=== PATIENT | male | born 1980 | race Caucasian/White ===

== ENCOUNTER 2023-03-01 12:45 | Emergency (ER) | payer OTHER, SELFPAY ==
[2023-03-01 12:49] VITALS: BP 130/85; PULSE 98; RESP 20; TEMP 36.6; O2SAT 97; BMI 36.9
--- NOTE | 2023-03-01 13:44 | CT_ITS ---
The [address] [address] Patient Name: LANDRY BRADLEY MRN: [id number] date: 1980 Sex: M Assigned Patient Location: ER Current Patient Location: ER Accession/Order Number: [id number] Exam Date: 03/01/2023 14:25 Report Date: 03/01/2023 14:58 At the request of: WARREN HUANG Procedure: CT lumbar spine wo con PROCEDURE: CT lumbar spine wo con COMPARISON: None. HISTORY: lumbar radiculopathy , left leg pain and numbness TECHNIQUE: Axial, Coronal, and Sagittal CT images obtained without IV contrast. Dose reduction techniques were achieved by using automated exposure control and/or adjustment of mA and/or kV according to patient size and/or use of iterative reconstruction technique. FINDINGS: PARASPINAL AREA: Normal with no visible mass. DISCS: Mild to moderate narrowing with disc/osteophyte complex L5-S1 coupled facet osteoarthropathy. There is mild to moderate narrowing of the right L5-S1 neural foramen BONES: Normal alignment with no acute fracture or spondylolisthesis. Minimal degenerative spondylosis. Focal area of sclerosis in the L2 vertebral body, indeterminate, possibly an enostosis. OTHER: Vascular calcifications CT/CT lumbar spine wo con IMPRESSION: Mild degenerative changes with mild to moderate narrowing of the right L5-S1 neural foramen Electronically authenticated by: MARIFER MOREAU Date: 03/01/2023 14:58
--- NOTE | 2023-03-01 13:46 | ED_ITS ---
Documented by User: GRIS Finley 03/01/23 15:26 HPI - General Adult General Chief complaint: Extremity Problem, Nontraumatic Stated complaint: LT LEG PAIN Time Seen by Provider: 03/01/23 13:14 Source: patient Mode of arrival: walk-in Limitations: no limitations History of Present Illness HPI narrative: patient is a 42-year-old male who presents to the emergency department for e valuation of tingling in the toes bilaterally as well as some tingling and pain on the left side of the leg. patient presents from [facility] to rule out AAA per the provider at the facility because the patient was complaining of abdominal cramping before bowel movement earlier today. Patient has no abdominal pain at this time, he states he has abdominal cramping before every bowel movement and he does not understand why the facility wanted him to come to be evaluated for his abdomen. He has had no fevers, vomiting, urinary symptoms. He denies any significant low back pain. He had no injuries to the lower extremities. He has not had any swelling, redness of the extremities. He states for the last several days he has noted numbness and tingling along the left anterior thigh into the left knee and he has noted tingling of the bilateral toes. He was recently started on gabapentin for this. Related Data Previous Rx's Medication Instructions Recorded ketorolac 10 mg tablet 10 mg PO TID PRN pain #10 tabs 03/01/23 methylprednisolone 4 mg tablets in See Rx Instructions .Route 03/01/23 a dose pack (Medrol (Joseph)) .COMPLEX #21 ea Allergies Allergy/AdvReac Type Severity Reaction Status Date / Time Penicillins Allergy Severe Hives Verified 03/01/23 12:55 Review of Systems ROS Constitutional Denies: fever or chills Ears, nose, mouth, and throat Denies: throat pain Cardiovascular Denies: chest pain Respiratory Denies: shortness of breath Gastrointestinal Reports: abdominal pain; Denies: nausea or vomiting Genitourinary Denies: painful urination Musculoskeletal Denies: back pain Integumentary/Breast Denies: rash Neurological Denies: headache Allergic/Immunologic Denies: hives PFSH PFSH Social History Smoking status: Heavy tobacco smoker Exam Narrative Exam Narrative: Gen.: Awake, alert, in no distress Head: Normocephalic, atraumatic ENT: Moist mucous membranes Respiratory: No respiratory distress Gastrointestinal: Abdomen is soft, nondistended and nontender to palpation; no pulsatile mass or distention Back: no bony tenderness of the C-spine, T-spine or L-spine, posterior hips are nontender Extremities: Moves extremities equally, normal dorsiflexion and plantarflexion of the lower extremities with no decrease in sensation to the medial thighs. Normal hip flexion bilaterally Psych: Normal mood and affect Neuro: No focal neuro deficit Skin: Warm, dry, intact Constitutional Vital Signs, click to edit/add: Last Vital Signs Temp 98 F 03/01/23 12:49 Pulse 89 03/01/23 15:55 Resp 20 03/01/23 15:55 BP 122/80 03/01/23 15:55 Pulse Ox 98 03/01/23 15:55 O2 Del Method Room Air 03/01/23 15:55 Course Vital Signs Vital signs: Vital Signs Temperature 98 F 03/01/23 12:49 Pulse Rate 98 H 03/01/23 12:49 Respiratory Rate 03/01/23 12:49 Blood Pressure 130/85 03/01/23 12:49 Pulse Oximetry 97 03/01/23 12:49 Oxygen Delivery Method Room Air 03/01/23 12:49 Temperature 98 F 03/01/23 12:49 Pulse Rate 89 03/01/23 15:55 Respiratory Rate 20 03/01/23 15:55 Blood Pressure 122/80 03/01/23 15:55 Pulse Oximetry 98 03/01/23 15:55 Oxygen Delivery Method Room Air 03/01/23 15:55 Medical Decision Making MDM Narrative Medical decision making narrative: patient with no complaints of abdominal pain in the Emergency Room. Vital signs are stable. CT of the lumbar spine with mild narrowing of L5/S1. Patient has no focal neuro deficits in the Emergency Room, history and exam are consistent with lumbar radiculopathy. He is on gabapentin as well. His lab studies are unremarkable with no evidence of electrolyte abnormality. He was reevaluated by attending physician prior to discharge and at this time we are not concerned for aortic dissection as he has normal pulses to the lower extremities, no abdominal tenderness or hypotension. He will be started on a Medrol Dosepak and NSAIDs, he is prescribed Robaxin at the rehab facility. He is encouraged to continue the gabapentin. He was made aware that his symptoms can always potentially be a side effect of his multiple medications that he was recently started on but are consistent with lumbar radiculopathy at this time. Return to the Emergency Room if symptoms change or worsen. Medical Records Medical records reviewed: Yes I reviewed the patient's medical records Lab Data Lab results reviewed: Yes I reviewed the patient's lab results Labs: Lab Results 03/01/23 Range/Units 13:58 WBC 8.8 (4.0-11.0) 10^3/uL RBC 5.07 (4.70-6.10) 10^6/uL Hgb 15.0 (14.0-18.0) g/dL Hct 43.5 (42.0-54.0) % MCV 85.8 (80.0-94.0) fL MCH 29.6 (25.9-34.0) pg MCHC 34.5 (29.9-35.2) g/dL RDW 13.6 (11.0-15.0) % Plt Count 192 (150-450) 10^3/uL MPV 10.1 (9.5-13.5) fL Neut % (Auto) 50.7 (43.0-75.0) % Lymph % (Auto) 32.5 (20.5-60.0) % [place] % (Auto) 9.6 (1.7-12.0) % Eos % (Auto) 6.3 (0.9-7.0) % Baso % (Auto) 0.7 (0.2-2.0) % Neut # (Auto) 4.5 (1.4-6.5) 10^3/uL Lymph # (Auto) 2.9 (1.2-3.8) 10^3/uL [place] # (Auto) 0.8 (0.3-0.8) 10^3/uL Eos # (Auto) 0.6 (0.0-0.7) 10^3/uL Baso # (Auto) 0.1 (0.0-0.1) 10^3/uL Abs Immat Gran (auto) 0.02 (0.00-0.03) 10^3/uL Imm/Tot Granulo (auto) 0.2 (0.0-0.5) % Sodium 137 (136-145) mmol/L Potassium 4.1 (3.5-5.1) mmol/L Chloride 101 (98-107) mmol/L Carbon Dioxide 30.4 (21.0-32.0) mmol/L Anion Gap 9.7 BUN 17.0 (7.0-18.0) mg/dL Creatinine 1.26 (0.70-1.30) mg/dL Est GFR ( Amer) >60 (>=60) Est GFR (Non-Af Amer) >60 (>=60) BUN/Creatinine Ratio 13.5 Glucose 154 H (74-106) mg/dL Calcium 8.4 L (8.5-10.1) mg/dL Magnesium 1.8 (1.8-2.4) mg/dL Total Bilirubin 0.3 (0.2-1.0) mg/dL AST 18 (15-37) U/L ALT 33 (16-63) U/L Alkaline Phosphatase 66 (46-116) U/L Total Protein 7.2 (6.4-8.2) g/dL Albumin 3.7 (3.4-5.0) g/dL Globulin 3.5 g/dL Albumin/Globulin Ratio 1.[address] Lumbar spine: Attestation: I have reviewed the pertinent imaging results. Radiologist's impression: Procedure: CT lumbar spine wo con PROCEDURE: CT lumbar spine wo con COMPARISON: None. HISTORY: lumbar radiculopathy , left leg pain and numbness TECHNIQUE: Axial, Coronal, and Sagittal CT images obtained without IV contrast. Dose reduction techniques were achieved by using automated exposure control and/or adjustment of mA and/or kV according to patient size and/or use of iterative reconstruction technique. FINDINGS: PARASPINAL AREA: Normal with no visible mass. DISCS: Mild to moderate narrowing with disc/osteophyte complex L5-S1 coupled facet osteoarthropathy. There is mild to moderate narrowing of the right L5-S1 neural foramen BONES: Normal alignment with no acute fracture or spondylolisthesis. Minimal degenerative spondylosis. Focal area of sclerosis in the L2 vertebral body, indeterminate, possibly an enostosis. OTHER: Vascular calcifications IMPRESSION: Mild degenerative changes with mild to moderate narrowing of the right L5-S1 neural foramen Electronically authenticated by: MARIFER MOREAU Date: 03/01/2023 14:58 Discharge Plan Discharge Chief Complaint: Extremity Problem, Nontraumatic Clinical Impression: Acute lumbar radiculopathy Patient Disposition: Home, Self-Care Time of Disposition Decision: 15:24 Condition: Good Prescriptions / Home Meds: New ketorolac 10 mg tablet 10 mg PO TID PRN (Reason: pain) Qty: 10 0RF methylprednisolone [Medrol (Joseph)] 4 mg tablets,dose pack See Rx Instructions .ROUTE .COMPLEX Qty: 21 0RF Rx Instructions: Taper as directed Instructions: Lumbar Radiculopathy (ED) Stand Alone Forms: Portal Instructions Referrals: Physician,Non-Staff, MD [Primary Care Provider] - 1 week Discharge Date/Time: 03/01/23 16:01 Documented by User: Ela Knight MD 03/01/23 17:12 HPI - General Adult General Chief complaint: Extremity Problem, Nontraumatic Stated complaint: LT LEG PAIN Time Seen by Provider: 03/01/23 13:14 Related Data Previous Rx's Medication Instructions Recorded ketorolac 10 mg tablet 10 mg PO TID PRN pain #10 tabs 03/01/23 methylprednisolone 4 mg tablets in See Rx Instructions .Route 03/01/23 a dose pack (Medrol (Joseph)) .COMPLEX #21 ea Allergies Allergy/AdvReac Type Severity Reaction Status Date / Time Penicillins Allergy Severe Hives Verified 03/01/23 12:55 PFSH [facility] Social History Smoking status: Heavy tobacco smoker Exam Constitutional Vital Signs, click to edit/add: Last Vital Signs Temp 98 F 03/01/23 12:49 Pulse 89 03/01/23 15:55 Resp 20 03/01/23 15:55 BP 122/80 03/01/23 15:55 Pulse Ox 98 03/01/23 15:55 O2 Del Method Room Air 03/01/23 15:55 Course Vital Signs Vital signs: Vital Signs Temperature 98 F 03/01/23 12:49 Pulse Rate 98 H 03/01/23 12:49 Respiratory Rate 20 03/01/23 12:49 Blood Pressure 130/85 03/01/23 12:49 Pulse Oximetry 97 03/01/23 12:49 Oxygen Delivery Method Room Air 03/01/23 12:49 Temperature 98 F 03/01/23 12:49 Pulse Rate 89 03/01/23 15:55 Respiratory Rate 20 03/01/23 15:55 Blood Pressure 122/80 03/01/23 15:55 Pulse Oximetry 98 03/01/23 15:55 Oxygen Delivery Method Room Air 03/01/23 15:55 Medical Decision Making MDM Narrative Medical decision making narrative: patient with no complaints of abdominal pain in the Emergency Room. Vital signs are stable. CT of the lumbar spine with mild narrowing of L5/S1. Patient has no focal neuro deficits in the Emergency Room, history and exam are consistent with lumbar radiculopathy. He is on gabapentin as well. His lab studies are unremarkable with no evidence of electrolyte abnormality. He was reevaluated by attending physician prior to discharge and at this time we are not concerned for aortic dissection as he has normal pulses to the lower extremities, no abdominal tenderness or hypotension. He will be started on a Medrol Dosepak and NSAIDs, he is prescribed Robaxin at the rehab facility. He is encouraged to continue the gabapentin. He was made aware that his symptoms can always potentially be a side effect of his multiple medications that he was recently started on but are consistent with lumbar radiculopathy at this time. Return to the Emergency Room if symptoms change or worsen. Attending physician attestation I have seen and evaluated this patient. I have reviewed the mid-level provider?s documentation medical decision making and treatment plan. I agree with the mid- level provider?s assessment, and plan. Lab Data Labs: Lab Results 03/01/23 Range/Units 13:58 WBC 8.8 (4.0-11.0) 10^3/uL RBC 5.07 (4.70-6.10) 10^6/uL Hgb 15.0 (14.0-18.0) g/dL Hct 43.5 (42.0-54.0) % MCV 85.8 (80.0-94.0) fL MCH 29.6 (25.9-34.0) pg MCHC 34.5 (29.9-35.2) g/dL RDW 13.6 (11.0-15.0) % Plt Count 192 (150-450) 10^3/uL MPV 10.1 (9.5-13.5) fL Neut % (Auto) 50.7 (43.0-75.0) % Lymph % (Auto) 32.5 (20.5-60.0) % [place] % (Auto) 9.6 (1.7-12.0) % Eos % (Auto) 6.3 (0.9-7.0) % Baso % (Auto) 0.7 (0.2-2.0) % Neut # (Auto) 4.5 (1.4-6.5) 10^3/uL Lymph # (Auto) 2.9 (1.2-3.8) 10^3/uL [place] # (Auto) 0.8 (0.3-0.8) 10^3/uL Eos # (Auto) 0.6 (0.0-0.7) 10^3/uL Baso # (Auto) 0.1 (0.0-0.1) 10^3/uL Abs Immat Gran (auto) 0.02 (0.00-0.03) 10^3/uL Imm/Tot Granulo (auto) 0.2 (0.0-0.5) % Sodium 137 (136-145) mmol/L Potassium 4.1 (3.5-5.1) mmol/L Chloride 101 (98-107) mmol/L Carbon Dioxide 30.4 (21.0-32.0) mmol/L Anion Gap 9.7 BUN 17.0 (7.0-18.0) mg/dL Creatinine 1.26 (0.70-1.30) mg/dL Est GFR ( Amer) >60 (>=60) Est GFR (Non-Af Amer) >60 (>=60) BUN/Creatinine Ratio 13.5 Glucose 154 H (74-106) mg/dL Calcium 8.4 L (8.5-10.1) mg/dL Magnesium 1.8 (1.8-2.4) mg/dL Total Bilirubin 0.3 (0.2-1.0) mg/dL AST 18 (15-37) U/L ALT 33 (16-63) U/L Alkaline Phosphatase 66 (46-116) U/L Total Protein 7.2 (6.4-8.2) g/dL Albumin 3.7 (3.4-5.0) g/dL Globulin 3.5 g/dL Albumin/Globulin Ratio 1.1 Discharge Plan Discharge Chief Complaint: Extremity Problem, Nontraumatic Clinical Impression: Acute lumbar radiculopathy Patient Disposition: Home, Self-Care Time of Disposition Decision: 15:24 Condition: Good Prescriptions / Home Meds: New ketorolac 10 mg tablet 10 mg PO TID PRN (Reason: pain) Qty: 10 0RF methylprednisolone [Medrol (Joseph)] 4 mg tablets,dose pack See Rx Instructions .ROUTE .COMPLEX Qty: 21 0RF Rx Instructions: Taper as directed Instructions: Lumbar Radiculopathy (ED) Stand Alone Forms: Portal Instructions Referrals: Physician,Non-Staff, MD [Primary Care Provider] - 1 week Discharge Date/Time: 03/01/23 16:01
[2023-03-01 14:13] LABS: Basophils Absolute Auto 0.1 10^3/uL (0.0-0.1); Basophils Percent Auto 0.7 % (0.2-2.0); Eosinophils Absolute Auto 0.6 10^3/uL (0.0-0.7); Eosinophils Percent Auto 6.3 % (0.9-7.0); Hematocrit 43.5 % (42.0-54.0); Immature Granulocytes Abs Auto 0.02 10^3/uL (0.00-0.03); Immature Granulocytes Pct Auto 0.2 % (0.0-0.5); Lymphocytes Absolute Auto 2.9 10^3/uL (1.2-3.8); Lymphocytes Percent Auto 32.5 % (20.5-60.0); Mean Corpuscular HGB Conc 34.5 g/dL (29.9-35.2); Mean Corpuscular Hemoglobin 29.6 pg (25.9-34.0); Mean Corpuscular Volume 85.8 fL (80.0-94.0); Mean Platelet Volume 10.1 fL (9.5-13.5); Monocytes Absolute Auto 0.8 10^3/uL (0.3-0.8); Monocytes Percent Auto 9.6 % (1.7-12.0); Neutrophils Absolute Auto 4.5 10^3/uL (1.4-6.5); Neutrophils Percent Auto 50.7 % (43.0-75.0); Platelet Count 192 10^3/uL (150-450); Red Blood Count 5.07 10^6/uL (4.70-6.10); Red Cell Distribution Width 13.6 % (11.0-15.0); White Blood Count 8.8 10^3/uL (4.0-11.0)
[2023-03-01 14:26] LABS: Magnesium 1.8 mg/dL (1.8-2.4)
[2023-03-01 14:27] LABS: Alanine Aminotransferase 33 U/L (16-63); Albumin Globulin Ratio 1.1; Albumin Level 3.7 g/dL (3.4-5.0); Alkaline Phosphatase 66 U/L (46-116); Anion Gap 9.7; Aspartate Amino Transferase 18 U/L (15-37); BUN Creatinine Ratio 13.5; Bilirubin Total 0.3 mg/dL (0.2-1.0); Calcium 8.4 mg/dL (8.5-10.1); Carbon Dioxide 30.4 mmol/L (21.0-32.0); Chloride 101 mmol/L (98-107); Estimated GFR (African America >60 (>=60); Estimated GFR (Non-African Ame >60 (>=60); Globulin 3.5 g/dL; Glucose 154 mg/dL (74-106); Potassium 4.1 mmol/L (3.5-5.1); Sodium 137 mmol/L (136-145); Total Protein 7.2 g/dL (6.4-8.2)
[2023-03-01 15:55] VITALS: BP 122/80; PULSE 89; RESP 20; O2SAT 98
== END 2023-03-01 16:01 | disposition home or self-care (01) ==
PROVIDERS: Physician Assistant; Emergency Provider Emergency Medicine
DX: M54.16 Radiculopathy, lumbar region (principal); F17.210 Nicotine dependence, cigarettes, uncomplicated
CPT/HCPCS: 36415; 72131; 80053; 83735; 85025; 99284